=== PATIENT | male | born 1985 | race Two or more races ===

== ENCOUNTER 2019-12-11 11:53 | Emergency (ER) | payer OTHER ==
[~2019-12-11] VITALS: Ht 165.1 cm; Wt 86.2 kg
--- NOTE | 2019-12-11 12:49 | NUR ---
PT PRESENTED TO THE ER WITH A C/O RT THUMB LACERATION. PT WAS WORKING WITH METAL AND CUT HIS THUMB. PT'S TETANUS IS NOT UP TO DATE. NO ACTIVE BLEEDING NOTED. PT'S HAND IS SOAKING IN NS.
--- NOTE | 2019-12-11 13:28 | NUR ---
XRAY IN PROGRESS AT THE BEDSIDE.
[2019-12-11] MEDS ORDERED: TDAP [DIPH/PERTUSSIS/TET] 0.5 ML VIAL IM ONE (14:14)
[2019-12-11] MEDS: TDAP [DIPH/PERTUSSIS/TET] 0.5 ML VIAL IM ONE (14:19)
--- NOTE | 2019-12-11 15:20 | NUR ---
SUTURING IN PROGRESS
[2019-12-11] MEDS ORDERED: LIDOCAINE /MPF 1% VIAL 5 ML VIAL ONE (15:29)
--- NOTE | 2019-12-11 15:47 | NUR ---
COVERING AND SPLINT PLACED ON RT THUMB.
--- NOTE | 2019-12-11 15:48 | NUR ---
Patient discharged to home in stable condition. Written and verbal after care instructions given. Patient verbalizes understanding of instruction AND RX. PT AMBULATED OUT WITH A STEADY GAIT. VSS. NAD NOTED. PT WAS INSTRUCTED TO RETURN IN 2 DAYS FOR A WOUND CHECK AND 1 WK FOR SUTURE REMOVAL.
[2019-12-11 15:49] VITALS: BP 147/78
== END 2019-12-11 15:50 | disposition home or self-care (01) ==
LOC: ER 11:58
DX: S61.011A Laceration without foreign body of right thumb without damage to nail, initial encounter (principal); W26.8XXA Contact with other sharp object(s), not elsewhere classified, initial encounter; Y93.89 Activity, other specified; Y92.89 Other specified places as the place of occurrence of the external cause; Y99.0 Civilian activity done for income or pay
CPT/HCPCS: 12001; 73120; 90471; 90715; 99283; J3490

== ENCOUNTER 2019-12-16 10:41 | Emergency (ER) | payer OTHER ==
[~2019-12-16] VITALS: Ht 165.1 cm; Wt 86.2 kg
[2019-12-16 10:52] VITALS: BP 151/75
--- NOTE | 2019-12-16 10:55 | NUR ---
wound re-check - seen here last Saturday in [facility] ER
== END 2019-12-16 11:18 | disposition home or self-care (01) ==
LOC: ER 10:41
DX: S61.011D Laceration without foreign body of right thumb without damage to nail, subsequent encounter (principal); X58.XXXD Exposure to other specified factors, subsequent encounter